=== PATIENT | female | born 1980 | race Caucasian/White ===

== ENCOUNTER 2016-06-30 10:17 | Emergency (ER) | payer MEDICARE, MEDICAID ==
[2016-06-30] MEDS ORDERED: predniSONE 20 MG TAB As Ordered ONE (11:17)
[2016-06-30] MEDS ORDERED: ONDANSETRON 4 MG ORAL DISINTEGRATING TAB (S0181) As Ordered ONE (11:18)
--- NOTE | 2016-06-30 11:47 | REP ---
Chest x-ray: Two views. History: Cough . Comparison study: May 08, 2015 . Findings: The lungs are well inflated and free of infiltrate. The pleural angles are sharp. The heart size is normal. Pulmonary vasculature is not increased. No significant bony abnormality is seen. Impression: Negative chest x-ray. Signed by Tomi Ontiveros MD 06/30/2016 11:39 A
[2016-06-30] MEDS ORDERED: IPRATROPIUM 0.5MG/ALBUTEROL 2.5MG INH SOL UD 3ML (DUONEB)(J7620) As Ordered ONE (11:48)
--- NOTE | 2016-06-30 12:26 | EDDOCDS ---
Physician Documentation [facility] Name: Alejandrina Adams Age: 36 yrs Sex: Female : 1980 Arrival Date: 06/30/2016 Time: 10:17 Bed PR Private MD: Unknown Pcp Disposition: 06/30/16 12:17 Discharged to Home/Self Care. Impression: Unspecified chronic bronchitis - with exacerbation. - Condition is Stable. - Discharge Instructions: Chronic Obstructive Pulmonary Disease. - Prescriptions for Zithromax Z- Luca 250 mg Oral Tablet - take 1 tablet by ORAL route as directed for 5 days Day 1- take two tablets once. Day 2, 3, 4 , 5 take one tablet once daily.; 6 tablet. Prednisone 20 mg Oral Tablet - take 2 tablet by ORAL route once daily for 5 days; 10 tablet. - Medication Reconciliation, Local Pharmacy Hours form. - Follow up: Emergency Department; When: As needed. Follow up: Private Physician; When: Call to arrange an appointment; Reason: Wound/Symptom Recheck, Recheck today's complaints, Worsening of conditions, Continuance of care. - Problem is an ongoing problem. - Symptoms have improved. Historical: - Allergies: no known allergies; - Home Meds: 1. Advair Diskus 250-50 mcg/dose Inhl dsdv 1 puff 2 times per day 2. Combivent 18-103 mcg/actuation Inhl aero 2 puffs 4 times per day 3. Depo-Provera 150 mg/mL IM susp 1 mL every 3 mo 4. Klonopin Oral nightly 5. Ventolin Rotahaler/Rotacaps 200 mcg Inhl CpDv - PMHx: Asthma; - PSHx: none; - Social history: Smoking status: Patient uses tobacco products, heavy tobacco smoker. No barriers to communication noted, The patient speaks fluent Bermudian, Speaks appropriately for age. - Family history: Not pertinent. - : The pt / caregiver states he / she is not on anticoagulants. Home medication list is obtained from the patient. - Exposure Risk Screening:: None identified. Vital Signs: 06/30 10:18 BP 142 / 99; Pulse 89; Resp 16; Temp 98.4(O); Pulse Ox 99% on R/A; Weight 65.77 kg / sew 145 lbs; Height 5 ft. 6 in. (167.64 cm); Pain 10/10; 12:23 BP 134 / 90; Pulse 88; Resp 18; Temp 98.3(T); Pulse Ox 98% on R/A; Pain 5/10; ck1 10:18 Body Mass Index 23.40 (65.77 kg, 167.64 cm) sew MDM: 11:15 Albuterol-Ipratropium 3 ml Inhalation once ordered. cc10 11:15 Call Respiratory ordered. cc10 11:15 Ondansetron ODT Oral Disintegrating Tablet 4 mg PO once ordered. cc10 11:15 predniSONE 20 mg PO once; administer with food or milk ordered. cc10 11:17 Chest, 2 View (pa\E\lat) Ordered. EDMS 11:21 Call Respiratory complete. ck1 Administered Medications: 11:21 Drug: Ondansetron ODT 4 mg [ondansetron 4 mg disintegrating tablet (1 tabs)] Route: PO; ck1 11:21 Drug: predniSONE 20 mg [prednisone 20 mg tablet (1 tabs)] Route: PO; ck1 11:52 Drug: Albuterol-Ipratropium 3 ml [ipratropium-albuterol 0.5 mg-3 mg(2.5 mg base)/3 mL [facility] nebulization soln (3 mL)] Route: Inhalation; Signatures: Dispatcher [employer] EDCA Yudelka Krueger,RN RN ck1 Aiyana Hoffman RN RN hs1 Grzegorz Esteban, PAMoodyC PA-C cc10 Rodrick Bynum 6 MTDD
--- NOTE | 2016-06-30 12:26 | EDDOCDS ---
Nurse's Notes [facility] Name: Alejandrina Adams Age: 36 yrs Sex: Female : 1980 Arrival Date: 06/30/2016 Time: 10:17 Bed PR Private MD: Unknown Pcp Diagnosis: Unspecified chronic bronchitis-with exacerbation Presentation: 06/30 10:33 Presenting complaint: Patient states: boyfriend states coughing up lots of yellow hs1 phlegm and patient reports vomiting since last night. Concern for pneumonia or flu. Adult Sepsis Screening: The patient does not have new or worsening altered mentation. Patient's respiratory rate is less than 22. Systolic blood pressure is greater than 100. Patient has a qSOFA score of 0- Negative Sepsis Screen. Suicide/Homicide risk assessment- the patient denies having any suicidal and/or homicidal ideations and does not present with any other emotional, behavioral or mental health complaints. Status: Patient is not a customer service specialist or dependent. Transition of care: patient was not received from another setting of care. 10:33 Acuity: SHRUTI Level 3 hs1 10:33 Method Of Arrival: Walkin/Carried/Asstd hs1 Triage Assessment: 10:35 General: Appears in no apparent distress, Behavior is appropriate for age, cooperative. hs1 Pain: Location: chest and abdomen Pain currently is 10 out of 10 on a pain scale. HIV screening NA for this visit Offered previously. Respiratory: Reports shortness of breath cough that is pain with cough. GI: Reports nausea, vomiting. Historical: - Allergies: no known allergies; - Home Meds: 1. Advair Diskus 250-50 mcg/dose Inhl dsdv 1 puff 2 times per day 2. Combivent 18-103 mcg/actuation Inhl aero 2 puffs 4 times per day 3. Depo-Provera 150 mg/mL IM susp 1 mL every 3 mo 4. Klonopin Oral nightly 5. Ventolin Rotahaler/Rotacaps 200 mcg Inhl CpDv - PMHx: Asthma; - PSHx: none; - Social history: Smoking status: Patient uses tobacco products, heavy tobacco smoker. No barriers to communication noted, The patient speaks fluent Namibian, Speaks appropriately for age. - Family history: Not pertinent. - : The pt / caregiver states he / she is not on anticoagulants. Home medication list is obtained from the patient. - Exposure Risk Screening:: None identified. Screenin:22 Screening information is obtained from the patient. Fall risk: No risks identified. ck1 Assistance ADL's: requires no assistance with activities of daily living. Abuse/DV Screen: The patient / caregiver reports he/she is: not in a situation that causes fear, pain or injury. Nutritional screening: No deficits noted. Advance Directives: Currently, there is no health care proxy. home support is adequate. Assessment: 11:21 General: Appears in no apparent distress, comfortable, Behavior is appropriate for age, ck1 cooperative. Pain: Location: abdomen and chest Pain currently is 10 out of 10 on a pain scale. Neurological: Level of Consciousness is awake, alert, obeys commands, Oriented to person, place, time. Respiratory: Respiratory effort is unlabored, Respiratory pattern is regular, symmetrical. GI: Abdomen is non- distended Bowel sounds present X 4 quads. Abd is soft and non tender X 4 quads. Reports nausea. Derm: Skin is pink, warm & dry. 12:24 General: Appears in no apparent distress, comfortable, Behavior is appropriate for age, ck1 cooperative. Pain: Location: generalized Pain currently is 5 out of 10 on a pain scale. Neurological: Level of Consciousness is awake, alert, obeys commands, Oriented to person, place, time. Respiratory: Respiratory effort is unlabored, Respiratory pattern is regular, symmetrical. GI: No deficits noted. Derm: Skin is pink, warm & dry. Vital Signs: 10:18 BP 142 / 99; Pulse 89; Resp 16; Temp 98.4(O); Pulse Ox 99% on R/A; Weight 65.77 kg; sew Height 5 ft. 6 in. (167.64 cm); Pain 10/10; 12:23 BP 134 / 90; Pulse 88; Resp 18; Temp 98.3(T); Pulse Ox 98% on R/A; Pain 5/10; ck1 10:18 Body Mass Index 23.40 (65.77 kg, 167.64 cm) [facility] [place]: 10:18 Log In Time: June 30, 2016 at 10:16. [facility] [place] Course: 10:18 Patient visited by Oliva Steven. sew 10:18 Unknown Pcp is Private Physician. sew 10:18 Patient moved to Waiting sew 10:19 Patient visited by Oliva Steven. sew 10:19 Patient moved to Pre RCE sew 10:34 Triage Initiated hs1 11:09 Patient moved to Triage 2 jrd 11:11 Grzegorz Esteban PA-C is PHCP. cc10 11:11 Oliva Arroyo MD is Attending Physician. cc10 11:11 Patient visited by Grzegorz Esteban PA-C. cc10 11:11 Patient visited by Grzegorz Esteban PA-C. cc10 11:17 Patient moved to PR2 / 26 jrd 11:21 No procedures done that require assistance. ck1 11:22 The patient / caregiver is instructed regarding the plan of care and ED course. ck1 12:05 Chest, 2 View (pa\E\lat) Returned. EDMS 12:13 Patient visited by Yudelka Krueger RN. ck1 12:24 No IV's were initiated during this patient's visit. ck1 Administered Medications: 11:21 Drug: Ondansetron ODT 4 mg [ondansetron 4 mg disintegrating tablet (1 tabs)] Route: PO; ck1 11:21 Drug: predniSONE 20 mg [prednisone 20 mg tablet (1 tabs)] Route: PO; ck1 11:52 Drug: Albuterol-Ipratropium 3 ml [ipratropium-albuterol 0.5 mg-3 mg(2.5 mg base)/3 mL jh6 nebulization soln (3 mL)] Route: Inhalation; RT: 11:52 Initial Med Neb Given as ordered Patient was instructed and evaluated on procedure jh6 Patient tolerated procedure well without adverse effect. Respiratory: Airway is patent Respiratory effort is even, unlabored, Respiratory pattern is regular symmetrical, Breath sounds are diminished in left posterior upper lobe, right posterior upper lobe, left posterior lower lobe, right posterior middle lobe and right posterior lower lobe. 11:58 Respiratory: Breath sounds are clear in left posterior upper lobe, right posterior jh6 upper lobe, left posterior lower lobe, right posterior middle lobe and right posterior lower lobe Breath sounds are diminished in left posterior lower lobe and right posterior lower lobe. Order Results: Radiology Order: Chest, 2 View (pa\E\lat) Test: Chest, 2 View (pa\E\lat) REASON FOR EXAMINATION: Cough; Chest x-ray: Two views.; ; History: Cough .; ; Comparison study: May 08, 2015 .; ; Findings: The lungs are well inflated and free of infiltrate. The pleural; angles are sharp. The heart size is normal. Pulmonary vasculature is not; increased. No significant bony abnormality is seen.; ; Impression:; ; Negative chest x-ray.; ; ; Signed by; Tomi Ontiveros MD 06/30/2016 11:39 A; Outcome: 12:17 Discharge ordered by Provider. cc10 12:24 Discharge Assessment: Patient awake, alert and oriented x 3. No cognitive and/or ck1 functional deficits noted. Patient verbalized understanding of disposition instructions. patient administered narcotics - no. The following High Risk Discharge criteria are identified: None. Discharged to home ambulatory. Condition: stable. Discharge instructions given to patient, Instructed on discharge instructions, follow up and referral plans. medication usage, Demonstrated understanding of instructions, medications, Pt was receptive of discharge instructions/ teaching. Prescriptions given X 2. No special radiology studies were completed. Property :Personal belongings accompany Pt. 12:25 Patient left the ED. ck1 Signatures: Dispatcher [employer] EDMS Yudelka Krueger,RN RN ck1 Aiyana Hoffman RN RN hs1 Rodrick Bynum 6 Oliva Steven Colin, PA-C PA-C cc10 Solitario Rowell, MELONY ANODIZE MACHINE OPERATOR jrd MTDD
--- NOTE | 2016-07-02 13:26 | EDDOCDS ---
Physician Documentation [facility] Name: Alejandrina Adams Age: 36 yrs Sex: Female : 1980 Arrival Date: 06/30/2016 Time: 10:17 Bed PR Private MD: Unknown Pcp Disposition: 06/30/16 12:17 Discharged to Home/Self Care. Impression: Unspecified chronic bronchitis - with exacerbation. - Condition is Stable. - Discharge Instructions: Chronic Obstructive Pulmonary Disease. - Prescriptions for Zithromax Z- Luca 250 mg Oral Tablet - take 1 tablet by ORAL route as directed for 5 days Day 1- take two tablets once. Day 2, 3, 4 , 5 take one tablet once daily.; 6 tablet. Prednisone 20 mg Oral Tablet - take 2 tablet by ORAL route once daily for 5 days; 10 tablet. - Medication Reconciliation, Local Pharmacy Hours form. - Follow up: Emergency Department; When: As needed. Follow up: Private Physician; When: Call to arrange an appointment; Reason: Wound/Symptom Recheck, Recheck today's complaints, Worsening of conditions, Continuance of care. - Problem is an ongoing problem. - Symptoms have improved. Historical: - Allergies: no known allergies; - Home Meds: 1. Advair Diskus 250-50 mcg/dose Inhl dsdv 1 puff 2 times per day 2. Combivent 18-103 mcg/actuation Inhl aero 2 puffs 4 times per day 3. Depo-Provera 150 mg/mL IM susp 1 mL every 3 mo 4. Klonopin Oral nightly 5. Ventolin Rotahaler/Rotacaps 200 mcg Inhl CpDv - PMHx: Asthma; - PSHx: none; - Social history: Smoking status: Patient uses tobacco products, heavy tobacco smoker. No barriers to communication noted, The patient speaks fluent Angolan, Speaks appropriately for age. - Family history: Not pertinent. - : The pt / caregiver states he / she is not on anticoagulants. Home medication list is obtained from the patient. - Exposure Risk Screening:: None identified. Vital Signs: 06/30 10:18 BP 142 / 99; Pulse 89; Resp 16; Temp 98.4(O); Pulse Ox 99% on R/A; Weight 65.77 kg / sew 145 lbs; Height 5 ft. 6 in. (167.64 cm); Pain 10/10; 12:23 BP 134 / 90; Pulse 88; Resp 18; Temp 98.3(T); Pulse Ox 98% on R/A; Pain 5/10; ck1 10:18 Body Mass Index 23.40 (65.77 kg, 167.64 cm) sew MDM: 11:15 Albuterol-Ipratropium 3 ml Inhalation once ordered. cc10 11:15 Call Respiratory ordered. cc10 11:15 Ondansetron ODT Oral Disintegrating Tablet 4 mg PO once ordered. cc10 11:15 predniSONE 20 mg PO once; administer with food or milk ordered. cc10 11:17 Chest, 2 View (pa\E\lat) Ordered. EDMS 11:21 Call Respiratory complete. ck1 12:33 [facility] Payment Agreement was scanned into [employer] and attached to record. az 12:33 Financial registration complete. az 14:47 T-Sheet-- Draft Copy was scanned into [employer] and attached to record. gb Administered Medications: 11:21 Drug: Ondansetron ODT 4 mg [ondansetron 4 mg disintegrating tablet (1 tabs)] Route: PO; ck1 11:21 Drug: predniSONE 20 mg [prednisone 20 mg tablet (1 tabs)] Route: PO; ck1 11:52 Drug: Albuterol-Ipratropium 3 ml [ipratropium-albuterol 0.5 mg-3 mg(2.5 mg base)/3 mL 6 nebulization soln (3 mL)] Route: Inhalation; Signatures: Dispatcher [employer] EDNY Cari Tucker, Reg Reg gb Yudelka KruegerRN RN ck1 Aiyana Hoffman RN RN hs1 Grzegorz Esteban, PA-C PA-C cc10 Grace Lopez Jacob jh6 The chart was reviewed and I authenticate all verbal orders and agree with the evaluation and treatment provided.Attachments: 12:33 [facility] Payment Agreement az 14:47 T-Sheet-- Draft Copy gb Chart Complete MTDD
--- NOTE | 2016-07-02 13:26 | EDDOCDS ---
Physician Documentation [facility] Name: Alejandrina Adams Age: 36 yrs Sex: Female : 1980 Arrival Date: 06/30/2016 Time: 10:17 Bed PR Private MD: Unknown Pcp Disposition: 06/30/16 12:17 Discharged to Home/Self Care. Impression: Unspecified chronic bronchitis - with exacerbation. - Condition is Stable. - Discharge Instructions: Chronic Obstructive Pulmonary Disease. - Prescriptions for Zithromax Z- Luca 250 mg Oral Tablet - take 1 tablet by ORAL route as directed for 5 days Day 1- take two tablets once. Day 2, 3, 4 , 5 take one tablet once daily.; 6 tablet. Prednisone 20 mg Oral Tablet - take 2 tablet by ORAL route once daily for 5 days; 10 tablet. - Medication Reconciliation, Local Pharmacy Hours form. - Follow up: Emergency Department; When: As needed. Follow up: Private Physician; When: Call to arrange an appointment; Reason: Wound/Symptom Recheck, Recheck today's complaints, Worsening of conditions, Continuance of care. - Problem is an ongoing problem. - Symptoms have improved. Historical: - Allergies: no known allergies; - Home Meds: 1. Advair Diskus 250-50 mcg/dose Inhl dsdv 1 puff 2 times per day 2. Combivent 18-103 mcg/actuation Inhl aero 2 puffs 4 times per day 3. Depo-Provera 150 mg/mL IM susp 1 mL every 3 mo 4. Klonopin Oral nightly 5. Ventolin Rotahaler/Rotacaps 200 mcg Inhl CpDv - PMHx: Asthma; - PSHx: none; - Social history: Smoking status: Patient uses tobacco products, heavy tobacco smoker. No barriers to communication noted, The patient speaks fluent Filipino, Speaks appropriately for age. - Family history: Not pertinent. - : The pt / caregiver states he / she is not on anticoagulants. Home medication list is obtained from the patient. - Exposure Risk Screening:: None identified. Vital Signs: 06/30 10:18 BP 142 / 99; Pulse 89; Resp 16; Temp 98.4(O); Pulse Ox 99% on R/A; Weight 65.77 kg / sew 145 lbs; Height 5 ft. 6 in. (167.64 cm); Pain 10/10; 12:23 BP 134 / 90; Pulse 88; Resp 18; Temp 98.3(T); Pulse Ox 98% on R/A; Pain 5/10; ck1 10:18 Body Mass Index 23.40 (65.77 kg, 167.64 cm) sew MDM: 11:15 Albuterol-Ipratropium 3 ml Inhalation once ordered. cc10 11:15 Call Respiratory ordered. cc10 11:15 Ondansetron ODT Oral Disintegrating Tablet 4 mg PO once ordered. cc10 11:15 predniSONE 20 mg PO once; administer with food or milk ordered. cc10 11:17 Chest, 2 View (pa\E\lat) Ordered. EDMS 11:21 Call Respiratory complete. ck1 12:33 [facility] Payment Agreement was scanned into [employer] and attached to record. az 12:33 Financial registration complete. az 14:47 T-Sheet-- Draft Copy was scanned into [employer] and attached to record. gb Administered Medications: 11:21 Drug: Ondansetron ODT 4 mg [ondansetron 4 mg disintegrating tablet (1 tabs)] Route: PO; ck1 11:21 Drug: predniSONE 20 mg [prednisone 20 mg tablet (1 tabs)] Route: PO; ck1 11:52 Drug: Albuterol-Ipratropium 3 ml [ipratropium-albuterol 0.5 mg-3 mg(2.5 mg base)/3 mL 6 nebulization soln (3 mL)] Route: Inhalation; Signatures: Dispatcher [employer] EDMI Cari Tucker, Reg Reg gb Yudelka KruegerRN RN ck1 Aiyana Hoffman RN RN hs1 Grzegorz Esteban, PA-C PA-C cc10 Grace Lopez Jacob jh6 The chart was reviewed and I authenticate all verbal orders and agree with the evaluation and treatment provided.Attachments: 12:33 [facility] Payment Agreement az 14:47 T-Sheet-- Draft Copy gb Chart Complete MTDD
--- NOTE | 2016-07-02 13:26 | EDDOCDS ---
Nurse's Notes [facility] Name: Alejandrina Adams Age: 36 yrs Sex: Female : 1980 Arrival Date: 06/30/2016 Time: 10:17 Bed PR Private MD: Unknown Pcp Diagnosis: Unspecified chronic bronchitis-with exacerbation Presentation: 06/30 10:33 Presenting complaint: Patient states: boyfriend states coughing up lots of yellow hs1 phlegm and patient reports vomiting since last night. Concern for pneumonia or flu. Adult Sepsis Screening: The patient does not have new or worsening altered mentation. Patient's respiratory rate is less than 22. Systolic blood pressure is greater than 100. Patient has a qSOFA score of 0- Negative Sepsis Screen. Suicide/Homicide risk assessment- the patient denies having any suicidal and/or homicidal ideations and does not present with any other emotional, behavioral or mental health complaints. 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 Transition of care: patient was not received from another setting of care. 10:33 Acuity: SHRUTI Level 3 hs1 10:33 Method Of Arrival: Walkin/Carried/Asstd hs1 Triage Assessment: 10:35 General: Appears in no apparent distress, Behavior is appropriate for age, cooperative. hs1 Pain: Location: chest and abdomen Pain currently is 10 out of 10 on a pain scale. HIV screening NA for this visit Offered previously. Respiratory: Reports shortness of breath cough that is pain with cough. GI: Reports nausea, vomiting. Historical: - Allergies: no known allergies; - Home Meds: 1. Advair Diskus 250-50 mcg/dose Inhl dsdv 1 puff 2 times per day 2. Combivent 18-103 mcg/actuation Inhl aero 2 puffs 4 times per day 3. Depo-Provera 150 mg/mL IM susp 1 mL every 3 mo 4. Klonopin Oral nightly 5. Ventolin Rotahaler/Rotacaps 200 mcg Inhl CpDv - PMHx: Asthma; - PSHx: none; - Social history: Smoking status: Patient uses tobacco products, heavy tobacco smoker. No barriers to communication noted, The patient speaks fluent [place], Speaks appropriately for age. - Family history: Not pertinent. - : The pt / caregiver states he / she is not on anticoagulants. Home medication list is obtained from the patient. - Exposure Risk Screening:: None identified. Screenin:22 Screening information is obtained from the patient. Fall risk: No risks identified. ck1 Assistance ADL's: requires no assistance with activities of daily living. Abuse/DV Screen: The patient / caregiver reports he/she is: not in a situation that causes fear, pain or injury. Nutritional screening: No deficits noted. Advance Directives: Currently, there is no health care proxy. home support is adequate. Assessment: 11:21 General: Appears in no apparent distress, comfortable, Behavior is appropriate for age, ck1 cooperative. Pain: Location: abdomen and chest Pain currently is 10 out of 10 on a pain scale. Neurological: Level of Consciousness is awake, alert, obeys commands, Oriented to person, place, time. Respiratory: Respiratory effort is unlabored, Respiratory pattern is regular, symmetrical. GI: Abdomen is non- distended Bowel sounds present X 4 quads. Abd is soft and non tender X 4 quads. Reports nausea. Derm: Skin is pink, warm & dry. 12:24 General: Appears in no apparent distress, comfortable, Behavior is appropriate for age, ck1 cooperative. Pain: Location: generalized Pain currently is 5 out of 10 on a pain scale. Neurological: Level of Consciousness is awake, alert, obeys commands, Oriented to person, place, time. Respiratory: Respiratory effort is unlabored, Respiratory pattern is regular, symmetrical. GI: No deficits noted. Derm: Skin is pink, warm & dry. Vital Signs: 10:18 BP 142 / 99; Pulse 89; Resp 16; Temp 98.4(O); Pulse Ox 99% on R/A; Weight 65.77 kg; sew Height 5 ft. 6 in. (167.64 cm); Pain 10/10; 12:23 BP 134 / 90; Pulse 88; Resp 18; Temp 98.3(T); Pulse Ox 98% on R/A; Pain 5/10; ck1 10:18 Body Mass Index 23.40 (65.77 kg, 167.64 cm) [facility] [place] Vitals: 10:18 Log In Time: June 30, 2016 at 10:16. [facility] [place] ED Course: 10:18 Patient visited by Oliva Steven. sew 10:18 Unknown Pcp is Private Physician. sew 10:18 Patient moved to Waiting sew 10:19 Patient visited by Oliva Steven. sew 10:19 Patient moved to Pre RCE sew 10:34 Triage Initiated hs1 11:09 Patient moved to Triage 2 jrd 11:11 Grzegorz Esteban PA-C is PHCP. cc10 11:11 Oliva Arroyo MD is Attending Physician. cc10 11:11 Patient visited by Grzegorz Esteban PA-C. cc10 11:11 Patient visited by Grzegorz Esteban PA-C. cc10 11:17 Patient moved to PR2 / 26 jrd 11:21 No procedures done that require assistance. ck1 11:22 The patient / caregiver is instructed regarding the plan of care and ED course. ck1 12:05 Chest, 2 View (pa\E\lat) Returned. EDMS 12:13 Patient visited by Yudelka Krueger RN. ck1 12:24 No IV's were initiated during this patient's visit. ck1 12:30 Patient name changed from Alejandrina\S\L\S\Brown\S\ to Alejandrina\S\Chari\S\Brown. EDMS 12:33 [facility] [place] Payment Agreement was scanned into [employer] and attached to record. az 14:47 T-Sheet-- Draft Copy was scanned into [employer] and attached to record. gb Administered Medications: 11:21 Drug: Ondansetron ODT 4 mg [ondansetron 4 mg disintegrating tablet (1 tabs)] Route: PO; ck1 11:21 Drug: predniSONE 20 mg [prednisone 20 mg tablet (1 tabs)] Route: PO; ck1 11:52 Drug: Albuterol-Ipratropium 3 ml [ipratropium-albuterol 0.5 mg-3 mg(2.5 mg base)/3 mL jh6 nebulization soln (3 mL)] Route: Inhalation; RT: 11:52 Initial Med Neb Given as ordered Patient was instructed and evaluated on procedure jh6 Patient tolerated procedure well without adverse effect. Respiratory: Airway is patent Respiratory effort is even, unlabored, Respiratory pattern is regular symmetrical, Breath sounds are diminished in left posterior upper lobe, right posterior upper lobe, left posterior lower lobe, right posterior middle lobe and right posterior lower lobe. 11:58 Respiratory: Breath sounds are clear in left posterior upper lobe, right posterior jh6 upper lobe, left posterior lower lobe, right posterior middle lobe and right posterior lower lobe Breath sounds are diminished in left posterior lower lobe and right posterior lower lobe. Order Results: Radiology Order: Chest, 2 View (pa\E\lat) Test: Chest, 2 View (pa\E\lat) REASON FOR EXAMINATION: Cough; Chest x-ray: Two views.; ; History: Cough .; ; Comparison study: May 08, 2015 .; ; Findings: The lungs are well inflated and free of infiltrate. The pleural; angles are sharp. The heart size is normal. Pulmonary vasculature is not; increased. No significant bony abnormality is seen.; ; Impression:; ; Negative chest x-ray.; ; ; Signed by; Tomi Ontiveros MD 06/30/2016 11:39 A; Outcome: 12:17 Discharge ordered by Provider. cc10 12:24 Discharge Assessment: Patient awake, alert and oriented x 3. No cognitive and/or ck1 functional deficits noted. Patient verbalized understanding of disposition instructions. patient administered narcotics - no. The following High Risk Discharge criteria are identified: None. Discharged to home ambulatory. Condition: stable. Discharge instructions given to patient, Instructed on discharge instructions, follow up and referral plans. medication usage, Demonstrated understanding of instructions, medications, Pt was receptive of discharge instructions/ teaching. Prescriptions given X 2. No special radiology studies were completed. Property :Personal belongings accompany Pt. 12:25 Patient left the ED. ck1 Signatures: Dispatcher [employer] EDMS Cari Tucker, Reg Reg Yudelka PalaciosRN RN ck1 Aiyana Hoffman RN RN hs1 Rodrick Bynum jh6 Oliva Steven Colin, PA-C PA-C cc10 oSlitario Rowell, MELONY PEPPER PICKER d Grace Lopez Chart Complete MTDD
== END 2016-06-30 12:25 | disposition home or self-care (01) ==
LOC: M ED 10:17
DX: J44.0 Chronic obstructive pulmonary disease with (acute) lower respiratory infection (principal); F17.210 Nicotine dependence, cigarettes, uncomplicated; Z79.51 Long term (current) use of inhaled steroids; Z79.899 Other long term (current) drug therapy

== ENCOUNTER 2018-03-05 13:22 | Emergency (ER) | payer MEDICARE, MEDICAID ==
[2018-03-05] MEDS: AMOXICILLIN 500 MG CAP PO (14:13)
[2018-03-05] MEDS: PERCOCET 5MG/325MG TAB PO (14:14)
== END 2018-03-05 14:16 | disposition home or self-care (01) ==
LOC: M ED 13:22
DX: K02.9 Dental caries, unspecified (principal); K05.10 Chronic gingivitis, plaque induced; F17.200 Nicotine dependence, unspecified, uncomplicated
CPT/HCPCS: 99282

== ENCOUNTER 2018-07-20 09:42 | Emergency (ER) | payer MEDICARE, MEDICAID ==
[~2018-07-20] VITALS: Ht 167.6 cm; Wt 59.4 kg
[~2018-07-20 09:42] MED LIST: ADV500INH; AMOX500C PO; COMBAER6; DOXE25CA; IBUP80TA; IBUP80TA PO; QUET1TAB8; VENTAER
[2018-07-20] MEDS ORDERED: IPRATROPIUM 0.5MG/ALBUTEROL 2.5MG INH SOL UD 3ML (DUONEB)(J7620) NEB ONE (10:30)
[2018-07-20] MEDS ORDERED: ALBUTEROL SULFATE 2.5 MG/0.5 ML INH NEB SOLN NEB ONE (10:30)
--- NOTE | 2018-07-20 10:52 | REP ---
Chest x-ray: Two views. History: Shortness of breath. Congestive cough . Comparison study: June 30, 2016 . Findings: The lungs are well inflated and free of infiltrate. The pleural angles are sharp. The heart size is normal. Pulmonary vasculature is not increased. There is a minimal levoconvex upper thoracic curve unchanged. No significant bony abnormality is seen. Impression: Negative chest x-ray. Electronically Signed by Tomi Ontiveros MD 07/20/2018 10:42 A
[2018-07-20] MEDS ORDERED: MUCI600T37 PO (10:57)
[2018-07-20 11:05] VITALS: BP 134/84
== END 2018-07-20 11:12 | disposition home or self-care (01) ==
LOC: M ED 09:42
DX: J20.9 Acute bronchitis, unspecified (principal); J45.909 Unspecified asthma, uncomplicated; J98.4 Other disorders of lung; Z72.0 Tobacco use; Z79.899 Other long term (current) drug therapy

== ENCOUNTER → 2018-09-18 | Outpatient (CLI) | payer MEDICARE, MEDICAID ==
[~2018-09-18] MED LIST changes: +MUCI600T37 PO
--- NOTE | 2018-09-18 12:04 | REPMRS ---
Patient History The patient states she had a clinical breast exam in August 2018. No known family history of cancer. Taking hormonal contraceptives for 10 years. Digital Mammo Diagnostic Bilateral: September 18, 2018 - Exam #: [id number] Bilateral CC and MLO view(s) were taken. Technologist: Donna Grewalologist FINDINGS: The breast tissue is extremely dense which could obscure a lesion on mammography. There is a fairly symmentric extremely dense fibroglandular pattern in the breast parenchyma. There is no evidence of dominant mass, architectural distortion, or clustered microcalcification typical of malignancy. 3-D tomosynthesis shows no additional findings. Assessment: BI-RADS/ACR category 1 mammogram. Negative Mammogram. Recommendation Routine screening mammogram of both breasts in 1 year (for women over age 40). This patient's Lifetime Breast Cancer RIsk is estimated at 13.0 %. This mammogram was interpreted with the aid of an FDA-approved computer-aided dectection system. Electronically Signed By: Shay Ontiveros MD 09/18/18 [id number]
== END ==
LOC: M RAD 11:28
PROVIDERS: ATTEND Nurse Practitioner Family
DX: N64.4 Mastodynia (principal)
CPT/HCPCS: 77066; G0279

== ENCOUNTER 2019-04-07 11:18 | Emergency (ER) | payer MEDICARE, MEDICAID ==
[~2019-04-07] VITALS: Ht 167.6 cm; Wt 58.6 kg
[2019-04-07 11:18] VITALS: BP 172/82
[~2019-04-07 11:18] MED LIST changes: -DOXE25CA; +DOXE25CA PO
[2019-04-07] MEDS ORDERED: IBUP80TA (11:28)
[2019-04-07] MEDS ORDERED: FLUTISP (11:28)
[2019-04-07] MEDS ORDERED: predniSONE 20 MG TAB PO ONE (11:45)
[2019-04-07] MEDS ORDERED: IPRATROPIUM 0.5MG/ALBUTEROL 2.5MG INH SOL UD 3ML (DUONEB)(J7620) NEB ONE (11:45)
[2019-04-07] MEDS ORDERED: ALBUTEROL SULFATE 2.5 MG/0.5 ML INH NEB SOLN NEB ONE (11:45)
[2019-04-07] MEDS ORDERED: LEVA750T7 PO (12:18)
[2019-04-07] MEDS ORDERED: PRED10TA2 PO (12:18)
--- NOTE | 2019-04-07 12:30 | REP ---
CHEST: Two views. COMPARISON: 07/20/2018 There is no evidence of acute infiltrate. No pleural effusion is seen. The heart is normal in size. The mediastinal silhouette is unremarkable. The visualized osseous structures are intact. IMPRESSION: No acute pulmonary disease. Electronically Signed by Ronny Bowens MD 04/07/2019 02:38 P
== END 2019-04-07 12:22 | disposition home or self-care (01) ==
LOC: M ED 11:18
DX: J20.9 Acute bronchitis, unspecified (principal); J45.901 Unspecified asthma with (acute) exacerbation; Z79.899 Other long term (current) drug therapy

== ENCOUNTER → 2019-07-13 | Outpatient (CLI) | payer MEDICARE, MEDICAID ==
[~2019-07-13] MED LIST changes: +FLUTISP; +LEVA750T7 PO; +PRED10TA2 PO
[2019-07-13 09:11] LABS: BLOOD UREA NITROGEN 5 MG/DL (7-18); CALCIUM LEVEL 8.5 MG/DL (8.5-10.1); CARBON DIOXIDE LEVEL 25 MEQ/L (21-32); CHLORIDE LEVEL 109 MEQ/L (98-107); CHOLESTEROL LEVEL 192 MG/DL (<200); CHOLESTEROL RISK RATIO 3.555 (<5); CREATININE FOR GFR 0.81 MG/DL (0.55-1.30); GLOMERULAR FILTRATION RATE > 60.0 (>60); GLUCOSE, FASTING 82 MG/DL (70-100); HDL CHOLESTEROL 54 MG/DL (>40); LDL CHOLESTEROL 119 MG/DL (<100); NON-HDL-C 138 MG/DL; POTASSIUM SERUM 4.1 MEQ/L (3.5-5.1); SODIUM LEVEL 139 MEQ/L (136-145); TRIGLYCERIDES LEVEL 95 MG/DL (<150)
[2019-07-13 09:16] LABS: HEMOGLOBIN A1c 5.6 %
== END ==
LOC: M LAB 08:12
PROVIDERS: ATTEND Student in an Organized Health Care Education/Training Program
DX: Z00.00 Encounter for general adult medical examination without abnormal findings (principal); Z79.899 Other long term (current) drug therapy

== ENCOUNTER → 2019-11-27 | Outpatient (CLI) | payer MEDICARE, MEDICAID ==
[~2019-11-27] MED LIST changes: +QUET100T2; -QUET1TAB8
[2019-11-27 10:41] LABS: BASO % 0.4 % (0.0-1.0); EOS # 0.2 10^3/uL (0.0-0.5); HEMATOCRIT 38.4 % (36.0-47.0); HEMOGLOBIN 13.5 g/dl (12.0-15.5); LYMPH # 2.1 10^3/uL (1.5-5.0); LYMPH % 27.3 % (24.0-44.0); MEAN CORPUSCULAR HEMOGLOBIN 34.4 pg (27.0-33.0); MEAN CORPUSCULAR HGB CONC 35.2 g/dl (32.0-36.5); MEAN CORPUSCULAR VOLUME 97.7 fl (80.0-96.0); MONO # 0.6 10^3/uL (0.0-0.8); MONO % 7.3 % (0.0-5.0); NEUTROPHILS # 4.7 10^3/uL (1.5-8.5); NEUTROPHILS % 62.6 % (36.0-66.0); PLATELET COUNT, AUTOMATED 323 10^3/uL (150-450); RED BLOOD COUNT 3.93 10^6/uL (4.00-5.40); WHITE BLOOD COUNT 7.6 10^3/uL (4.0-10.0)
== END ==
LOC: M LAB 09:53
DX: J45.20 Mild intermittent asthma, uncomplicated (principal)

== ENCOUNTER → 2020-04-08 | Outpatient (CLI) | payer MEDICARE, MEDICAID ==
--- NOTE | 2020-04-08 14:21 | REP ---
INDICATION: DYSPNEA. COMPARISON: Comparison radiograph April 07, 2019. TECHNIQUE: Two views.. FINDINGS: The lungs are well inflated and free of infiltrate. The pleural angles are sharp. The heart size is normal. Pulmonary vasculature is not increased. No significant bony abnormality is seen. IMPRESSION: Negative chest x-ray. <Electronically signed by Shay Ontiveros > 04/08/20 [id number]
== END | disposition home or self-care (01) ==
LOC: M RAD 11:10
PROVIDERS: ATTEND Physician Assistant
DX: R06.00 Dyspnea, unspecified (principal)

== ENCOUNTER → 2020-10-07 | Outpatient (CLI) | payer MEDICARE, MEDICAID ==
[2020-10-07 10:02] LABS: HEMATOCRIT 38.7 % (36.0-47.0); HEMOGLOBIN 13.3 g/dl (12.0-15.5); MEAN CORPUSCULAR HEMOGLOBIN 33.2 pg (27.0-33.0); MEAN CORPUSCULAR HGB CONC 34.4 g/dl (32.0-36.5); MEAN CORPUSCULAR VOLUME 96.5 fl (80.0-96.0); PLATELET COUNT, AUTOMATED 318 10^3/uL (150-450); RED BLOOD COUNT 4.01 10^6/uL (4.00-5.40); WHITE BLOOD COUNT 7.2 10^3/uL (4.0-10.0)
[2020-10-07 10:16] LABS: BLOOD UREA NITROGEN 6 MG/DL (7-18); CALCIUM LEVEL 8.8 MG/DL (8.5-10.1); CARBON DIOXIDE LEVEL 25 MEQ/L (21-32); CHLORIDE LEVEL 109 MEQ/L (98-107); CREATININE FOR GFR 0.78 MG/DL (0.55-1.30); GLOMERULAR FILTRATION RATE > 60.0 (>58); GLUCOSE, FASTING 111 MG/DL (70-100); POTASSIUM SERUM 4.2 MEQ/L (3.5-5.1); SODIUM LEVEL 139 MEQ/L (136-145)
== END ==
LOC: M LAB 09:27
PROVIDERS: ATTEND Student in an Organized Health Care Education/Training Program
DX: J45.909 Unspecified asthma, uncomplicated (principal)

== ENCOUNTER → 2022-04-15 | Outpatient (CLI) | payer MEDICARE, MEDICAID | LOC: M WHC 10:43 | PROVIDERS: ATTEND Physician Assistant Medical | DX: R92.2 Inconclusive mammogram (principal) ==

== ENCOUNTER → 2022-05-02 | Outpatient (CLI) | payer MEDICARE, MEDICAID | LOC: M WHC 13:46 | PROVIDERS: ATTEND Physician Assistant Medical | DX: N64.89 Other specified disorders of breast (principal) ==

== ENCOUNTER → 2022-05-04 | Outpatient (CLI) | payer MEDICARE, MEDICAID | LOC: M RAD 10:37 → M LAB 10:37 | PROVIDERS: ATTEND Student in an Organized Health Care Education/Training Program | DX: R49.0 Dysphonia (principal) ==

== ENCOUNTER → 2022-09-05 | Outpatient (CLI) | payer MEDICARE, MEDICAID ==
[~2022-09-05] MED LIST changes: +ALBU2.5V10 INH; +COMBAER6 INH; +FLUT50SP17; -FLUTISP; +OMEP1CAP73 PO; +ONDA4TAB6 PO; +QUET100T2 PO
[2022-09-05 14:25] LABS: BASO % 0.4 % (0.0-1.0); EOS # 0.2 10^3/uL (0.0-0.5); EOS % 2.7 % (0.0-3.0); HEMOGLOBIN 13.6 g/dl (12.0-15.5); LYMPH # 2.1 10^3/uL (1.5-5.0); LYMPH % 38.6 % (24.0-44.0); MEAN CORPUSCULAR HEMOGLOBIN 35.4 pg (27.0-33.0); MEAN CORPUSCULAR HGB CONC 34.9 g/dl (32.0-36.5); MEAN CORPUSCULAR VOLUME 101.6 fl (80.0-96.0); MONO # 0.7 10^3/uL (0.0-0.8); MONO % 12.3 % (2.0-8.0); NEUTROPHILS # 2.6 10^3/uL (1.5-8.5); NEUTROPHILS % 45.8 % (36.0-66.0); PLATELET COUNT, AUTOMATED 343 10^3/uL (150-450); RED BLOOD COUNT 3.84 10^6/uL (4.00-5.40); WHITE BLOOD COUNT 5.6 10^3/uL (4.0-10.0)
[2022-09-05 14:39] LABS: HEMOGLOBIN A1c 4.8 % (4.0-6.0)
[2022-09-05 15:02] LABS: THYROID STIMULATING HORMONE 0.532 uIU/ML (0.55-4.78)
[2022-09-05 15:03] LABS: FREE T4 0.62 NG/DL (0.89-1.76)
[2022-09-05 15:05] LABS: ALBUMIN 3.3 G/DL (3.2-5.2); ALKALINE PHOSPHATASE 41 U/L (46-116); ALT/SGPT 14 U/L (7.0-40); AST/SGOT 13 U/L (<34); BILIRUBIN,TOTAL 0.5 MG/DL (0.3-1.2); BLOOD UREA NITROGEN < 5 MG/DL (9-23); CALCIUM LEVEL 8.8 MG/DL (8.5-10.1); CARBON DIOXIDE LEVEL 25 MMOL/L (20-31); CHLORIDE LEVEL 108 MMOL/L (98-107); CHOLESTEROL LEVEL 177 MG/DL (<200); CHOLESTEROL RISK RATIO 2.57 (<5); CREATININE FOR GFR 0.71 MG/DL (0.55-1.30); GLOMERULAR FILTRATION RATE > 60.0 (>58); GLUCOSE, FASTING 91 MG/DL (60-100); HDL CHOLESTEROL 68.8 MG/DL (>40); LDL CHOLESTEROL 96.2 MG/DL (<100); NON-HDL-C 108.2 MG/DL; POTASSIUM SERUM 4.2 MMOL/L (3.5-5.1); SODIUM LEVEL 139 MMOL/L (136-145); TOTAL PROTEIN 5.9 G/DL (5.7-8.2); TRIGLYCERIDES LEVEL 60 MG/DL (<150)
== END ==
LOC: M LAB 13:45
PROVIDERS: ATTEND Student in an Organized Health Care Education/Training Program
DX: F17.200 Nicotine dependence, unspecified, uncomplicated (principal)

== ENCOUNTER → 2023-01-03 | Outpatient (CLI) | payer MEDICARE, MEDICAID ==
[2023-01-03 16:26] LABS: TOTAL IRON BINDING CAPACITY 263 UG/DL (250-425)
[2023-01-03 16:27] LABS: IRON (FE) 184 UG/DL (50-170)
[2023-01-03 16:31] LABS: BLOOD UREA NITROGEN < 5 MG/DL (9-23); CALCIUM LEVEL 8.4 MG/DL (8.5-10.1); CARBON DIOXIDE LEVEL 22 MMOL/L (20-31); CHLORIDE LEVEL 104 MMOL/L (98-107); CREATININE FOR GFR 0.71 MG/DL (0.55-1.30); FERRITIN 112.9 NG/ML (7.3-270.7); FOLATE 7.23 NG/ML (>5.4); FREE T4 0.71 NG/DL (0.89-1.76); GLOMERULAR FILTRATION RATE > 60.0 (>58); GLUCOSE, FASTING 68 MG/DL (60-100); POTASSIUM SERUM 4.4 MMOL/L (3.5-5.1); SODIUM LEVEL 136 MMOL/L (136-145); THYROID STIMULATING HORMONE 0.714 uIU/ML (0.55-4.78); VITAMIN B12 LEVEL 188 PG/ML (211-911)
[2023-01-07 20:11] LABS: Methylmalonic Acid 670 nmol/L (0-378)
== END ==
LOC: M PLALAB 13:05
PROVIDERS: ATTEND Student in an Organized Health Care Education/Training Program
DX: D53.9 Nutritional anemia, unspecified (principal); I10 Essential (primary) hypertension; R79.89 Other specified abnormal findings of blood chemistry

== ENCOUNTER 2023-01-08 22:04 | Emergency (ER) | payer MEDICARE, MEDICAID ==
[~2023-01-08] VITALS: Ht 167.6 cm; Wt 54.5 kg
[2023-01-08 22:19] VITALS: TEMP 97.6
[2023-01-08] MEDS ORDERED: LORazepam 2 MG/ML 1ML VIAL IV STA (23:33)
[2023-01-08] MEDS ORDERED: NS 1,000 ML IV ONE (23:40)
[2023-01-09 01:04] LABS: BASO % 0.4 % (0.0-1.0); EOS % 0.4 % (0.0-3.0); HEMATOCRIT 36.8 % (36.0-47.0); HEMOGLOBIN 13.6 g/dl (12.0-15.5); LYMPH # 1.1 10^3/uL (1.5-5.0); LYMPH % 19.9 % (24.0-44.0); MEAN CORPUSCULAR HEMOGLOBIN 34.8 pg (27.0-33.0); MEAN CORPUSCULAR VOLUME 94.1 fl (80.0-96.0); MONO # 0.4 10^3/uL (0.0-0.8); MONO % 6.4 % (2.0-8.0); NEUTROPHILS % 72.7 % (36.0-66.0); PLATELET COUNT, AUTOMATED 310 10^3/uL (150-450); RED BLOOD COUNT 3.91 10^6/uL (4.00-5.40); WHITE BLOOD COUNT 5.5 10^3/uL (4.0-10.0)
[2023-01-09 01:26] LABS: ETHYL ALCOHOL (ETHANOL) < 0.003 % (0.000-0.010); LIPASE 22 U/L (12-53)
[2023-01-09 01:27] LABS: CPK CREATINE PHOSPHOKINASE 54 U/L (34-145)
[2023-01-09 01:35] LABS: ALBUMIN 3.6 G/DL (3.2-5.2); ALKALINE PHOSPHATASE 36 U/L (46-116); ALT/SGPT 29 U/L (7.0-40); AST/SGOT 24 U/L (<34); BILIRUBIN,DIRECT 0.2 MG/DL (<0.4); BILIRUBIN,TOTAL 0.5 MG/DL (0.3-1.2); BLOOD UREA NITROGEN < 5 MG/DL (9-23); CALCIUM LEVEL 8.7 MG/DL (8.5-10.1); CARBON DIOXIDE LEVEL 21 MMOL/L (20-31); CHLORIDE LEVEL 103 MMOL/L (98-107); CK-MB VALUE MASS < 1.0 NG/ML (<3.6); CREATININE FOR GFR 0.54 MG/DL (0.55-1.30); GLOMERULAR FILTRATION RATE > 60.0 (>58); GLUCOSE, FASTING 80 MG/DL (60-100); MB/CK RELATIVE INDEX 1.85 (< OR =4); SODIUM LEVEL 134 MMOL/L (136-145); TOTAL PROTEIN 6.2 G/DL (5.7-8.2)
[2023-01-09 02:39] LABS: CK-MB VALUE MASS < 1.0 NG/ML (<3.6)
[2023-01-09 02:40] LABS: CPK CREATINE PHOSPHOKINASE 45 U/L (34-145); MB/CK RELATIVE INDEX 2.22 (< OR =4)
[2023-01-09 03:30] VITALS: BP 155/96
[2023-01-09 03:34] VITALS: O2SAT 97
== END 2023-01-09 03:46 | disposition home or self-care (01) ==
LOC: EDBD 22:04 → M ED 22:04
DX: F41.9 Anxiety disorder, unspecified (principal); I10 Essential (primary) hypertension; F79 Unspecified intellectual disabilities; E03.9 Hypothyroidism, unspecified; F17.290 Nicotine dependence, other tobacco product, uncomplicated
CPT/HCPCS: 36415; 71045; 80048; 80076; 82077; 82550; 82553; 83605; 83690; 84484; 85025; 85379; 87486; 87581; 87633; 87798; 93005; 93041; 94760; 96374; 99285; J2060

== ENCOUNTER → 2023-07-26 | Outpatient (CLI) | payer MEDICARE, MEDICAID ==
[~2023-07-26] MED LIST changes: -FLUT50SP17; +FLUTISP
[2023-07-26 15:58] LABS: THYROID STIMULATING HORMONE 1.858 uIU/ML (0.55-4.78)
[2023-07-26 15:59] LABS: FREE T4 0.66 NG/DL (0.89-1.76)
== END ==
LOC: M PLALAB 13:42
PROVIDERS: ATTEND Student in an Organized Health Care Education/Training Program
DX: E53.8 Deficiency of other specified B group vitamins (principal); E07.9 Disorder of thyroid, unspecified

== ENCOUNTER → 2023-09-07 | Outpatient (CLI) | payer MEDICARE, MEDICAID | LOC: M WHC 10:03 | PROVIDERS: ATTEND Student in an Organized Health Care Education/Training Program | DX: R92.8 Other abnormal and inconclusive findings on diagnostic imaging of breast (principal) | CPT/HCPCS: 76642; 77066; G0279 ==

== ENCOUNTER 2023-09-26 14:37 | Emergency (ER) | payer MEDICARE, MEDICAID ==
[~2023-09-26] VITALS: Ht 167.6 cm; Wt 56.4 kg
[2023-09-26 16:25] LABS: BASO % 0.7 % (0.0-1.0); EOS # 0.1 10^3/uL (0.0-0.5); EOS % 1.5 % (0.0-3.0); HEMATOCRIT 43.1 % (36.0-47.0); HEMOGLOBIN 14.9 g/dl (12.0-15.5); LYMPH % 32.6 % (24.0-44.0); MEAN CORPUSCULAR HGB CONC 34.6 g/dl (32.0-36.5); MEAN CORPUSCULAR VOLUME 92.5 fl (80.0-96.0); MONO # 0.6 10^3/uL (0.0-0.8); MONO % 10.3 % (2.0-8.0); NEUTROPHILS # 3.3 10^3/uL (1.5-8.5); NEUTROPHILS % 54.4 % (36.0-66.0); PLATELET COUNT, AUTOMATED 375 10^3/uL (150-450); RED BLOOD COUNT 4.66 10^6/uL (4.00-5.40); WHITE BLOOD COUNT 6.1 10^3/uL (4.0-10.0)
[2023-09-26 16:49] LABS: LIPASE 26 U/L (12-53)
[2023-09-26 16:52] LABS: ALBUMIN 3.4 G/DL (3.2-5.2); ALKALINE PHOSPHATASE 50 U/L (46-116); ALT/SGPT 26 U/L (7.0-40); AST/SGOT 25 U/L (<34); BILIRUBIN,DIRECT 0.2 MG/DL (<0.4); BILIRUBIN,TOTAL 0.6 MG/DL (0.3-1.2); BLOOD UREA NITROGEN < 5 MG/DL (9-23); CALCIUM LEVEL 9.4 MG/DL (8.5-10.1); CARBON DIOXIDE LEVEL 23 MMOL/L (20-31); CHLORIDE LEVEL 110 MMOL/L (98-107); CREATININE FOR GFR 0.65 MG/DL (0.55-1.30); GLOMERULAR FILTRATION RATE > 60.0 (>58); GLUCOSE, FASTING 88 MG/DL (60-100); POTASSIUM SERUM 4.3 MMOL/L (3.5-5.1); SODIUM LEVEL 139 MMOL/L (136-145); TOTAL PROTEIN 6.9 G/DL (5.7-8.2)
[2023-09-26 16:59] LABS: HCG, SERUM QUALITATIVE NEGATIVE (NEGATIVE)
[2023-09-26 19:21] VITALS: TEMP 97.9
[2023-09-26] MEDS: ONDANSETRON 4MG 2ML VIAL IV ONE (19:44)
[2023-09-26] MEDS: NS 1,000 ML IV ONE (19:45)
[2023-09-26] MEDS ORDERED: ISOVUE-370 76% 100ML VIAL As Ordered ONE (20:01)
[2023-09-26 20:05] LABS: CK-MB VALUE MASS < 1.0 NG/ML (<3.6); ETHYL ALCOHOL (ETHANOL) < 0.003 % (0.000-0.010)
[2023-09-26 20:06] LABS: SALICYLATE LEVEL < 3.0 MG/DL (<30)
[2023-09-26 20:10] LABS: CPK CREATINE PHOSPHOKINASE 81 U/L (34-145); MB/CK RELATIVE INDEX 1.23 (< OR =4)
[2023-09-26] MEDS: FOLIC ACID 1MG TAB PO SCH (20:21)
[2023-09-26] MEDS: LORazepam 2 MG TAB PO PRN (20:21)
[2023-09-26] MEDS: MULTIVITAMINS/MINERALS THERAP 1 TAB PO SCH (20:21)
[2023-09-26] MEDS: THIAMINE 100 MG TAB PO SCH (20:21)
[2023-09-26] MEDS ORDERED: LABETALOL 100MG/20ML VIAL IV PRN (20:25)
[2023-09-26 21:14] LABS: PARTIAL THROMBOPLASTIN TIME 25.4 SECONDS (24.8-34.2); PROTHROMBIN TIME 12.9 SECONDS (12.5-14.5)
[2023-09-26 22:27] VITALS: BP 139/92; O2SAT 98
[2023-09-26] MEDS ORDERED: OXAZ15CA4 PO (22:35)
== END 2023-09-26 23:32 | disposition home or self-care (01) ==
LOC: EDBD 14:37 → M ED 14:37
DX: R11.10 Vomiting, unspecified (principal); R19.7 Diarrhea, unspecified; I10 Essential (primary) hypertension; K21.9 Gastro-esophageal reflux disease without esophagitis; J45.909 Unspecified asthma, uncomplicated; E03.9 Hypothyroidism, unspecified; F17.210 Nicotine dependence, cigarettes, uncomplicated; F10.10 Alcohol abuse, uncomplicated; Z79.51 Long term (current) use of inhaled steroids; Z79.899 Other long term (current) drug therapy
CPT/HCPCS: 70450; 70496; 70498; 74177; 80048; 80076; 80143; 81000; 81015; 82077; 82550; 82553; 83690; 84484; 84703; 85025; 85610; 85730; 93005; 93041; 94760; 96374; 96375; 99285; J2405; Q9967

== ENCOUNTER → 2024-03-04 | Outpatient (CLI) | payer MEDICARE, MEDICAID ==
[~2024-03-04] MED LIST changes: +ONDA-282 PO; -ONDA4TAB6 PO; +OXAZ15CA4 PO
[2024-03-04 11:38] LABS: BASO % 0.4 % (0.0-1.0); EOS # 0.2 10^3/uL (0.0-0.5); HEMATOCRIT 42.8 % (36.0-47.0); HEMOGLOBIN 14.6 g/dl (12.0-15.5); LYMPH # 2.5 10^3/uL (1.5-5.0); LYMPH % 33.6 % (24.0-44.0); MEAN CORPUSCULAR HEMOGLOBIN 32.7 pg (27.0-33.0); MEAN CORPUSCULAR HGB CONC 34.1 g/dl (32.0-36.5); MONO # 0.5 10^3/uL (0.0-0.8); MONO % 6.8 % (2.0-8.0); NEUTROPHILS # 4.2 10^3/uL (1.5-8.5); NEUTROPHILS % 56.9 % (36.0-66.0); PLATELET COUNT, AUTOMATED 376 10^3/uL (150-450); RED BLOOD COUNT 4.46 10^6/uL (4.00-5.40); WHITE BLOOD COUNT 7.4 10^3/uL (4.0-10.0)
[2024-03-04 12:14] LABS: ALBUMIN 3.7 G/DL (3.2-5.2); ALKALINE PHOSPHATASE 55 U/L (46-116); ALT/SGPT 19 U/L (7.0-40); AST/SGOT 10 U/L (<34); BILIRUBIN,TOTAL 0.6 MG/DL (0.3-1.2); BLOOD UREA NITROGEN 6 MG/DL (9-23); CALCIUM LEVEL 9.1 MG/DL (8.5-10.1); CARBON DIOXIDE LEVEL 27 MMOL/L (20-31); CHLORIDE LEVEL 108 MMOL/L (98-107); CREATININE FOR GFR 0.75 MG/DL (0.55-1.30); GLOMERULAR FILTRATION RATE > 60.0 (>58); GLUCOSE, FASTING 84 MG/DL (60-100); POTASSIUM SERUM 4.4 MMOL/L (3.5-5.1); SODIUM LEVEL 136 MMOL/L (136-145)
[2024-03-04 12:15] LABS: FREE T4 1.12 NG/DL (0.89-1.76); THYROID STIMULATING HORMONE 1.039 uIU/ML (0.55-4.78)
[2024-03-04 12:16] LABS: FOLATE 8.1 NG/ML (>5.4); VITAMIN B12 LEVEL 411 PG/ML (211-911)
[2024-03-04 13:10] LABS: HEPATITIS B SURFACE ANTIBODY NEGATIVE (POSITIVE)
[2024-03-04 13:22] LABS: HEPATITIS B SURFACE ANTIGEN NEGATIVE (NEGATIVE)
[2024-03-04 13:45] LABS: HEPATITIS C VIRUS ABY INDEX < 0.02 INDEX (<0.8)
[2024-03-05 12:39] LABS: HEPATITIS A IgG TOTAL NON-REACTIVE (NON-REACTIVE); HEPATITIS B CORE ANTIBODY IGG NON-REACTIVE (NON-REACTIVE)
== END ==
LOC: M RAD 10:07
PROVIDERS: ATTEND Student in an Organized Health Care Education/Training Program
DX: F10.10 Alcohol abuse, uncomplicated (principal); E07.9 Disorder of thyroid, unspecified

== ENCOUNTER → 2024-03-11 | Outpatient (REF) | payer MEDICARE, MEDICAID ==
[2024-03-11 20:12] LABS: Trichomonas vaginalis (AMP) NOT DETECTED (NEGATIVE)
[2024-03-11 20:36] LABS: GC DNA AMPLIFICATION NEGATIVE (NEGATIVE)
== END ==
LOC: M SFHCPLAZ 17:12
PROVIDERS: ATTEND Student in an Organized Health Care Education/Training Program
DX: Z12.4 Encounter for screening for malignant neoplasm of cervix (principal); R87.5 Abnormal microbiological findings in specimens from female genital organs; Z11.3 Encounter for screening for infections with a predominantly sexual mode of transmission; Z72.89 Other problems related to lifestyle

== ENCOUNTER 2024-10-14 21:44 | Emergency (ER) | payer MEDICARE, MEDICAID ==
[~2024-10-14] VITALS: Ht 167.6 cm; Wt 51.3 kg
[~2024-10-14 21:44] MED LIST changes: -ADV500INH; +ADVA1AER10; +DEPO150I12 IM
[2024-10-15] MEDS ORDERED: IBUP-1022 PO (07:18)
[2024-10-15 08:06] VITALS: BP 113/82; TEMP 98.7; O2SAT 98
== END 2024-10-15 08:15 | disposition home or self-care (01) ==
LOC: M ED 21:44
DX: S70.11XA Contusion of right thigh, initial encounter (principal); Y92.019 Unspecified place in single-family (private) house as the place of occurrence of the external cause; Y93.9 Activity, unspecified; Y99.9 Unspecified external cause status; W01.198A Fall on same level from slipping, tripping and stumbling with subsequent striking against other object, initial encounter; Z79.1 Long term (current) use of non-steroidal anti-inflammatories (NSAID); Z79.51 Long term (current) use of inhaled steroids; Z79.899 Other long term (current) drug therapy